=== PATIENT | female | born 1975 | race Caucasian/White ===

== ENCOUNTER 2021-12-12 09:21 | Outpatient (CLI) | payer OTHER, SELFPAY ==
--- NOTE | ~2021-12-12 | MM_ITS ---
EXAMINATION: MM screening [facility] BI w abdifatah HISTORY: Screening TECHNIQUE: Craniocaudal and mediolateral oblique 3-D tomosynthesis images were obtained and synthetic 2-D images were generated. CAD analysis was submitted and interpreted. COMPARISON: 07/22/2013 BREAST PARENCHYMAL COMPOSITION: Breast composed of scattered areas of fibroglandular density. FINDINGS: There is a new focal asymmetry in the lower inner quadrant of the right breast, middle thir d. The left breast is stable without evidence for malignancy. IMPRESSION: 1. New focal right breast asymmetry, lower inner quadrant. 2. Additional mammographic views and possible breast ultrasound are recommended. BI-RADS Category 0: Incomplete: Needs additional imaging evaluation. Reviewed, dictated and finalized at location A. IMPRESSION: 1. New focal right breast asymmetry, lower inner quadrant. 2. Additional mammographic views and possible breast ultrasound are recommended . BI-RADS Category 0: Incomplete: Needs additional imaging evaluation.
== END 2021-12-12 09:22 | disposition home or self-care (01) ==
LOC: ANHIMG 09:23
PROVIDERS: PCP Physician Assistant; Visit Provider Obstetrics & Gynecology
DX: Z12.31 Encounter for screening mammogram for malignant neoplasm of breast (principal); R92.8 Other abnormal and inconclusive findings on diagnostic imaging of breast
CPT/HCPCS: 77063; 77067

== ENCOUNTER 2021-12-29 11:54 | Outpatient (CLI) | payer OTHER, SELFPAY ==
--- NOTE | ~2021-12-29 | MMUS_ITS ---
EXAMINATION: MM diagnostic [facility] RT w abdifatah, US breast RT complete HISTORY: New focal mammographic asymmetry reported in right lower inner quadrant on 12/12/2021 screenin g mammogram examination TECHNIQUE: Additional 3-D tomosynthesis images of the right breast were performed and synthetic 2-D i mages were generated. CAD analysis was submitted and interpreted. High resolution lower inner quadran t right breast ultrasound was performed. COMPARISON: 12/22/2021 bilateral screening mammogram FINDINGS: MAMMOGRAPHIC FINDINGS: No reproducible mass is detected at the lower inner quadrant of the right breast. ULTRASOUND: No suspicious mass, shadowing, cyst or other significant finding is noted in the lower inner quadrant of the right breast. IMPRESSION: 1. No mammographic evidence of malignancy 2. Routine mammographic screening is recommended. BI-RADS Category 1: Negative Reviewed, dictated and finalized at location A. IMPRESSION: 1. No mammographic evidence of malignancy 2. Routine mammographic screening is recommended. BI-RADS Category 1: Negative
== END 2021-12-29 11:55 | disposition home or self-care (01) ==
PROVIDERS: PCP Physician Assistant; Visit Provider Obstetrics & Gynecology
DX: R92.8 Other abnormal and inconclusive findings on diagnostic imaging of breast (principal)
CPT/HCPCS: 76641; 77061; 77065; G0279

== ENCOUNTER 2023-11-22 09:30 | Outpatient (CLI) | payer OTHER, SELFPAY ==
--- NOTE | ~2023-11-22 | MM_ITS ---
EXAMINATION: MM screening [facility] BI w abdifatah HISTORY: Screening TECHNIQUE: Craniocaudal and mediolateral oblique 3-D tomosynthesis images were obtained and synthetic 2-D images were generated. CAD analysis was submitted and interpreted. COMPARISON: 12/12/2021 BREAST PARENCHYMAL COMPOSITION: Not dense: There are scattered areas of fibroglandular density. FINDINGS: The right breast is stable without evidence for malignancy. There is a developing asymmetry in the lower outer quadrant of the left breast, middle third. IMPRESSION: 1. Developing left breast asymmetry. 2. Additional mammographic views and possible breast ultrasound are recommended. BI-RADS Category 0: Incomplete: Needs additional imaging evaluation. Reviewed, dictated and finalized at location B. IMPRESSION: 1. Developing left breast asymmetry. 2. Additional mammographic views and possible breast ultrasound are recommended . BI-RADS Category 0: Incomplete: Needs additional imaging evaluation.
== END 2023-11-22 09:31 | disposition home or self-care (01) ==
PROVIDERS: PCP Family Medicine; Visit Provider Obstetrics & Gynecology
DX: Z12.31 Encounter for screening mammogram for malignant neoplasm of breast (principal); R92.8 Other abnormal and inconclusive findings on diagnostic imaging of breast
CPT/HCPCS: 77063; 77067

== ENCOUNTER 2023-12-13 12:52 | Outpatient (CLI) | payer OTHER, SELFPAY ==
--- NOTE | ~2023-12-13 | MMUS_ITS ---
EXAMINATION: MM diagnostic [facility] LT w abdifatah, US breast LT limited HISTORY: Developing mammographic asymmetry reported in middle third of lower outer quadrant of left b reast on November 22, 2023 screening mammogram TECHNIQUE: Additional 3-D tomosynthesis images of the left breast were performed and synthetic 2-D im ages were generated. CAD analysis was submitted and interpreted. High resolution upper outer and lowe r outer quadrant left breast ultrasound was performed. COMPARISON: November 22, 2023 bilateral screening mammogram FINDINGS: MAMMOGRAPHIC FINDINGS: No suspicious mass or architectural distortion, malignant calcification, skin thickening or retractio n is detected. ULTRASOUND: No suspicious mass or shadowing, cysts or other significant sonographic abnormalities detected in the upper outer or lower outer quadrants of the left breast. IMPRESSION: 1. No evidence of malignancy 2. Routine annual mammographic screening is recommended BI-RADS Category 1: Negative Reviewed, dictated and finalized at location B. IMPRESSION: 1. No evidence of malignancy 2. Routine annual mammographic screening is recommended BI-RADS Category 1: Negative
== END 2023-12-13 12:53 | disposition home or self-care (01) ==
PROVIDERS: PCP Family Medicine; Visit Provider Obstetrics & Gynecology
DX: R92.8 Other abnormal and inconclusive findings on diagnostic imaging of breast (principal)
CPT/HCPCS: 76642; 77061; 77065; G0279

== ENCOUNTER 2025-05-05 14:29 | Outpatient (CLI) | payer OTHER, SELFPAY ==
--- NOTE | 2025-05-05 14:41 | ECHO_ITS ---
Patient Info Name: Nuris Owen Age: 49 years : 1975 Gender: Female Ht: 63 in Wt: 169 lbs BSA: 1.87 m2 HR: 78 bpm BP: 127 / 94 mmHg Heart Rhythm: Sinus Rhythm Technical Quality: Good Exam Date: 05/05/2025 2:54 PM Patient Status: O Admit Date: 05/05/2025 Exam Type: CA echo doppler color flow Complete two-dimensional, color flow and Doppler transthoracic echocardiogram is performed. [employer] Supervisor: Missy Galdaemz Attending Provider: Alesha Donaldson Summary 1. Complete two-dimensional, color flow and Doppler transthoracic echocardiogram is performed. 2. Left ventricular chamber dimension is normal. 3. Left ventricular systolic function is normal, estimated at 60-65. 4. The left ventricular diastolic function is grade I diastolic dysfunction. 5. E/e' 9 is minimally elevated. 6. Left atrial chamber dimension is mildly enlarged. 7. There is trace aortic valve regurgitation. 8. There is trace mitral valve regurgitation. 9. No pulmonary hypertension, estimated pulmonary arterial systolic pressure is 26 mmHg. Left Ventricle E/e' 9 is minimally elevated. Left ventricular chamber dimension is normal. Left ventricular systolic function is normal, estimated at 60-65. The left ventricular diastolic function is grade I diastolic dysfunction. Right Ventricle Right ventricular chamber dimension is normal. Right ventricular systolic function is normal and with normal TAPSE 2.1 cm. Left Atria Left atrial chamber dimension is mildly enlarged. Right Atria Right atrial chamber dimension is normal. Aortic Valve The aortic valve is trileaflet. There is no aortic valve stenosis. There is trace aortic valve regurgitation. Pulmonic Valve There is no pulmonic regurgitation. Mitral Valve There is no mitral valve stenosis. There is trace mitral valve regurgitation. Tricuspid Valve There is no tricuspid valve regurgitation. No pulmonary hypertension, estimated pulmonary arterial systolic pressure is 26 mmHg. Pericardium/Pleural There is no pericardial effusion. Inferior Vena Cava Normal inferior vena cava with >50% collapse upon inspiration consistent with normal right atrial pressure, 5 mmHg. Aorta The aortic root size at the sinus of Valsalva is normal. Left Ventricular Outflow Tract Name Value Normal LVOT 2D LVOT Diameter 2.0 cm LVOT Doppler LVOT Peak Velocity 140 cm/s LVOT Peak Gradient 8 mmHg LVOT Mean Gradient 3 mmHg LVOT VTI 26 cm LVOT VTI/AV VTI Ratio 1.0 LVOT Stroke Volume 81 ml LVOT CO 5.2 l/min LVOT CI 2.8 l/min/m2 Pulmonic Valve Name Value Normal RVOT Doppler RVOT Peak Velocity 88 cm/s RVOT Peak Gradient 3 mmHg PV Doppler PV Peak Velocity 106 cm/s PV Peak Gradient 5 mmHg Mitral Valve Name Value Normal MV Diastolic Function MV E Peak Velocity 94 cm/s MV A Peak Velocity 102 cm/s MV E/A 0.9 MV Decel Time (PW) 126 ms MV Annular TDI MV E/e' (Septal) 9.3 MV E/e' (Lateral) 10.6 MV E/e' (Average) 9.9 Tricuspid Valve Name Value Normal TV Regurgitation Doppler TR Peak Velocity 230 cm/s TR Peak Gradient 21 mmHg Estimated PAP/RSVP RA Pressure 5 mmHg <=5 PA Systolic Pressure 26 mmHg <36 RV Systolic Pressure 26 mmHg <36 TV Annular TDI TV Lateral Kylie s' Velocity 14.6 cm/s >=9.5 Aortic Valve Name Value Normal AV Doppler AV Peak Velocity 144 cm/s AV Peak Gradient 8 mmHg AV Mean Gradient 4 mmHg AV VTI 27 cm AV Area (Cont Eq VTI) 3.0 cm2 >=3.0 AV Area (Cont Eq Hamilton) 3.1 cm2 AV DI (Hamilton) 0.97 AV Regurgitation 2D LVOT Area 3.1 cm2 Ventricles Name Value Normal LV Dimensions 2D/MM IVS Diastolic Thickness (2D) 0.8 cm 0.6-1.0 LVID Diastole (2D) 4.0 cm 3.8-5.2 LVIW Diastolic Thickness (2D) 0.8 cm 0.6-0.9 LVID Systole (2D) 2.7 cm 2.2-3.5 LVOT Diameter 2.0 cm LV Mass (2D Cubed) 94.10 g 67.00-162.00 LV Mass Index (2D Cubed) 50 g/m2 43-95 Relative Wall Thickness (2D) 0.42 <=0.42 LV Fractional Shortening/Ejection Fraction 2D/MM LV Fractional Shortening (2D) 33 % 27-45 LV EF (2D Teichholz) 62 % LV Diastolic Volume (4C MOD) 81 ml LV EF (4C MOD) 66 % LV Diastolic Volume (2C MOD) 76 ml LV EF (2C MOD) 71 % LV Diastolic Volume (BP MOD) 79 ml 46-106 LV Diastolic Volume Index (BP MOD) 42 ml/m2 29-61 LV Systolic Volume (BP MOD) 26 ml 14-42 LV Systolic Volume Index (BP MOD) 14 ml/m2 8-24 LV EF (BP MOD) 67 % 54-74 LV Diastolic Length (4C) 7.3 cm LV Systolic Length (4C) 5.8 cm LV Stroke Volume (4C MOD) 53 ml Atria Name Value Normal LA Dimensions LA Volume (4C A-L) 43 ml LA Volume (BP A-L) 62 ml RA Dimensions RA Area (4C) 14.3 cm2 <=18.0 Report Signatures
== END 2025-05-05 14:30 | disposition home or self-care (01) ==
PROVIDERS: PCP Family Medicine; Visit Provider Student in an Organized Health Care Education/Training Program
DX: R01.1 Cardiac murmur, unspecified (principal); I51.89 Other ill-defined heart diseases
CPT/HCPCS: 93306

== ENCOUNTER 2025-05-06 14:11 | Outpatient (CLI) | payer OTHER, SELFPAY ==
--- NOTE | ~2025-05-06 | MM_ITS ---
EXAMINATION: MM screening [facility] BI w abdifatah HISTORY: Screening TECHNIQUE: Craniocaudal and mediolateral oblique 3-D tomosynthesis images were obtained and synthetic 2-D images were generated. CAD analysis was submitted and interpreted. COMPARISON: Comparison to multiple prior studies sequentially, with oldest reviewed study dated 12/12/2021. BREAST PARENCHYMAL COMPOSITION: Not dense: There are scattered areas of fibroglandular density. FINDINGS: There is no evidence of suspicious mass, calcification, or architectural distortion to suggest malignancy in either breast. There has been no suspicious interval change. IMPRESSION: 1. No mammographic evidence of malignancy. 2. Recommend routine screening mammography in one year. BI-RADS Category 1: Negative Reviewed, dictated and finalized at location B.
== END 2025-05-06 14:12 | disposition home or self-care (01) ==
LOC: CHSIMG 14:11
PROVIDERS: PCP Family Medicine; Visit Provider Obstetrics & Gynecology
DX: Z12.31 Encounter for screening mammogram for malignant neoplasm of breast (principal)
CPT/HCPCS: 77063; 77067